=== PATIENT | male | born 1965 | race Caucasian/White ===

== ENCOUNTER 2017-09-08 08:08 | Day surgery (SDC) | payer OTHER ==
[2017-09-08] MEDS: POLYMYXIN/BACITRACIN 1L IRRIG IRR
[2017-09-08] MEDS: BUPIVACAINE 0.25% (MPF) 30 ML INJ INJ
[~2017-09-08 08:08] MED LIST: GLYCOPYRROLATE 0.4 MG INJ; NEOSTIGMINE 3 MG/3 ML SYRINGE
[2017-09-08] MEDS ORDERED: SOD CHLORIDE 0.9% 1,000 ML IV (09:00)
[2017-09-08] MEDS ORDERED: CEFAZOLIN 2 GM/50 ML (PMX) 50 ML IVPB (09:00)
[2017-09-08] MEDS ORDERED: BUPIVACAINE 0.25% (MPF) 30 ML INJ (10:23)
[2017-09-08] MEDS ORDERED: ONDANSETRON 4 MG INJ IV (10:30)
[2017-09-08] MEDS ORDERED: HYDROmorphONE 1 MG/5 ML IV SYRINGE IV ×2 (10:30)
[2017-09-08] MEDS ORDERED: FENTAnyl 50 MCG/ML VIAL IV ×3 (10:30)
[2017-09-08] MEDS ORDERED: DIPHENHYDRAMINE 50 MG INJ IV (10:30)
[2017-09-08] MEDS ORDERED: MEPERIDINE 25 MG INJ IV (10:30)
[2017-09-08] MEDS ORDERED: PROCHLORPERAZINE 10 MG INJ IV (10:30)
[2017-09-08] MEDS ORDERED: MIDAZOLAM 1 MG/ML 2 ML INJ (10:35)
[2017-09-08] MEDS ORDERED: FENTAnyl 50 MCG/ML VIAL (10:35)
[2017-09-08] MEDS ORDERED: LIDOCAINE 2% (SDV) 5 ML INJ (10:36)
[2017-09-08] MEDS ORDERED: PROPOFOL 20 ML (10:36)
[2017-09-08] MEDS ORDERED: ROCURONIUM 50 MG INJ (10:36)
[2017-09-08] MEDS ORDERED: SUCCINYLCHOLINE CHLORIDE 100 MG/5 ML SYG IV (10:36)
[2017-09-08] MEDS ORDERED: ROPIVACAINE 0.5 % 30 ML VIAL (10:36)
[2017-09-08] MEDS ORDERED: CEFAZOLIN 1 GM INJ (10:57)
[2017-09-08] MEDS ORDERED: ONDANSETRON 4 MG INJ (11:06)
[2017-09-08] MEDS ORDERED: DEXAMETHASONE 4 MG/ML 1 ML INJ (11:07)
[2017-09-08] MEDS ORDERED: KETOROLAC 30 MG INJ (11:28)
[2017-09-08] MEDS: HYDROmorphONE 1 MG/5 ML IV SYRINGE IV (12:02)
[2017-09-08] MEDS: HYDROCODONE/APAP (5/325) TAB PO (12:14)
== END 2017-09-08 14:30 | disposition home or self-care (01) ==
LOC: SDS 08:08
DX: K40.30 Unilateral inguinal hernia, with obstruction, without gangrene, not specified as recurrent (principal); I10 Essential (primary) hypertension; J45.909 Unspecified asthma, uncomplicated
CPT/HCPCS: 49507

== ENCOUNTER 2017-10-18 15:34 | Observation (INO) | payer OTHER ==
[~2017-10-18 15:34] MED LIST changes: +EPHEDrine SULFATE 50 MG/5 ML SYG; -GLYCOPYRROLATE 0.4 MG INJ; -NEOSTIGMINE 3 MG/3 ML SYRINGE
[2017-10-18] MEDS: LACTATED RINGER'S 1,000 ML IV (16:36)
[2017-10-18] MEDS: POLYMYXIN/BACITRACIN 1L IRRIG (17:33)
[2017-10-18] MEDS ORDERED: MIDAZOLAM 1 MG/ML 2 ML INJ (17:59)
[2017-10-18] MEDS ORDERED: LIDOCAINE 2% (SDV) 5 ML INJ (17:59)
[2017-10-18] MEDS ORDERED: PROPOFOL 20 ML (17:59)
[2017-10-18] MEDS ORDERED: SUCCINYLCHOLINE CHLORIDE 100 MG/5 ML SYG IV (17:59)
[2017-10-18] MEDS ORDERED: ROCURONIUM 50 MG INJ (17:59)
[2017-10-18] MEDS ORDERED: hydrALAzine 20 MG INJ IV (18:00)
[2017-10-18] MEDS ORDERED: MEPERIDINE 25 MG INJ IV (18:00)
[2017-10-18] MEDS ORDERED: DIPHENHYDRAMINE 50 MG INJ IV (18:00)
[2017-10-18] MEDS ORDERED: HYDROmorphONE 1 MG/5 ML IV SYRINGE IV ×3 (18:00)
[2017-10-18] MEDS ORDERED: ONDANSETRON 4 MG INJ IV (18:00)
[2017-10-18] MEDS ORDERED: LABETALOL HCL 20MG INJ IV (18:00)
[2017-10-18] MEDS ORDERED: FENTAnyl 50 MCG/ML VIAL IV ×3 (18:00)
[2017-10-18] MEDS ORDERED: PROCHLORPERAZINE 10 MG INJ IV (18:00)
[2017-10-18] MEDS ORDERED: ROPIVACAINE 0.5 % 30 ML VIAL (18:07)
[2017-10-18] MEDS ORDERED: CEFAZOLIN 1 GM INJ (18:27)
[2017-10-18] MEDS ORDERED: DEXAMETHASONE 4 MG/ML 1 ML INJ (18:31)
[2017-10-18] MEDS ORDERED: ONDANSETRON 4 MG INJ (18:31)
[2017-10-18] MEDS ORDERED: FAMOTIDINE 20 MG INJ (18:31)
[2017-10-18] MEDS ORDERED: LABETALOL HCL 20MG INJ (18:32)
[2017-10-18] MEDS: VANCOMYCIN 1 GM INJ (20:46)
[2017-10-18] MEDS ORDERED: GELATIN SIZE 100 SPONGE (20:47)
[2017-10-18] MEDS: BUPIVACAINE 0.5% (SDV) 30 ML INJ (21:00)
[2017-10-19] MEDS: LACTATED RINGER'S 1,000 ML IV (00:10)
[2017-10-19 01:40] LABS: ANION GAP 9 (8-16); BLOOD UREA NITROGEN 24 mg/dl (7-20); CALCIUM 8.6 mg/dl (8.4-10.2); CARBON DIOXIDE 27 mmol/L (21-31); CHLORIDE 107 mmol/L (97-110); CREATININE 1.47 mg/dl (0.61-1.24); GLUCOSE 114 mg/dl (70-220); POTASSIUM 5.1 mmol/L (3.5-5.1); SODIUM 138 mmol/L (135-144)
[2017-10-19] MEDS: HYDROCODONE/APAP (10/325) TAB PO ×2 (12:10→15:57)
[2017-10-19] MEDS: HYDROmorphONE 2 MG/ML SYG IV (12:21)
[2017-10-19] MEDS: KETOROLAC 30 MG INJ IV (14:16)
== END 2017-10-19 18:00 | disposition home or self-care (01) ==
LOC: SDS 15:34 → REC 21:53 → MS1 22:35
DX: Q66.1 Congenital talipes calcaneovarus (principal); I12.9 Hypertensive chronic kidney disease with stage 1 through stage 4 chronic kidney disease, or unspecified chronic kidney disease; N18.3 Chronic kidney disease, stage 3 (moderate); J45.909 Unspecified asthma, uncomplicated; Z87.891 Personal history of nicotine dependence; B18.2 Chronic viral hepatitis C; Z82.49 Family history of ischemic heart disease and other diseases of the circulatory system
CPT/HCPCS: 28300; 73630-LT; 80048; 87070; 87075; 88300; 88304; 88311; 97116; 97161

== ENCOUNTER 2017-11-22 23:32 | Emergency (ER) | payer OTHER ==
[2017-11-23] MEDS: HYDROCODONE/APAP (5/325) TAB PO (02:15)
== END 2017-11-23 03:38 | disposition home or self-care (01) ==
LOC: E/R 23:32
DX: M25.572 Pain in left ankle and joints of left foot (principal); I10 Essential (primary) hypertension; Z79.82 Long term (current) use of aspirin; Z87.891 Personal history of nicotine dependence
CPT/HCPCS: 73610; 99283-25